=== PATIENT | female | born 1975 | race Two or more races ===

== ENCOUNTER 2023-09-25 08:30 | Day surgery (SDC) | payer OTHER ==
[2023-09-23 12:02] VITALS: BMI 29.5
[2023-09-25 10:19] VITALS: PULSE 82; RESP 20; TEMP 97.1
[2023-09-25 10:29] VITALS: BP 110/65
== END 2023-09-25 10:30 | disposition home or self-care (01) ==
LOC: FASU-ENDO 08:30
PROVIDERS: ATTEND Internal Medicine Gastroenterology
PROC: 0DJD8ZZ Inspection of Lower Intestinal Tract, Via Natural or Artificial Opening Endoscopic (ICD-10-PCS; principal; 2023-09-25 09:33)
DX: Z12.11 Encounter for screening for malignant neoplasm of colon (principal)